=== PATIENT | male | born 1985 | race Caucasian/White ===

== ENCOUNTER 2020-06-09 08:57 | Emergency (ER) | payer MEDICAID ==
[~2020-06-09] VITALS: Ht 182.9 cm; Wt 70.5 kg
[~2020-06-09 08:57] MED LIST: NO HOME MEDS
[2020-06-09 09:18] VITALS: BP 125/84
[2020-06-09] MEDS ORDERED: proparacaine 0.5% ophthalmic drops 15ml EACHEYE ONE (09:25)
[2020-06-09] MEDS ORDERED: ibuprofen tablet 400 MG TABLET PO ONE (09:30)
[2020-06-09] MEDS ORDERED: acetaminophen 325mg tablet PO ONE (09:30)
[2020-06-09] MEDS ORDERED: ERYT1OIN6 LEFTEYE (10:15)
[2020-06-09] MEDS ORDERED: erythromycin ophthalmic ointment 1gm tube LEFTEYE ONE (10:15)
== END 2020-06-09 10:36 | disposition home or self-care (01) ==
LOC: ER 08:58
DX: T15.92XA Foreign body on external eye, part unspecified, left eye, initial encounter (principal); J45.909 Unspecified asthma, uncomplicated; Z79.2 Long term (current) use of antibiotics; X58.XXXA Exposure to other specified factors, initial encounter; Y93.89 Activity, other specified; Y92.89 Other specified places as the place of occurrence of the external cause; Y99.8 Other external cause status
CPT/HCPCS: 65222; 99283; 99284

== ENCOUNTER 2022-05-23 01:41 | Emergency (ER) | payer MEDICAID ==
[~2022-05-23] VITALS: Ht 182.9 cm; Wt 70.5 kg
[2022-05-23 01:46] VITALS: BP 133/92
[2022-05-23] MEDS ORDERED: proparacaine 0.5% ophthalmic drops 15ml LEFTEYE ONE (02:20)
[2022-05-23] MEDS ORDERED: tropicamide 0.5% ophth drops 15ml bottle LEFTEYE ONE (03:35)
[2022-05-23] MEDS ORDERED: ofloxacin 0.33% 5ml ophthalmic drops LEFTEYE SCH (05:15)
[2022-05-23] MEDS ORDERED: OFLO5DRO LEFTEYE (05:19)
--- NOTE | 2022-05-23 05:57 | NUR ---
unable to measure visual acuity r/t eye pain and photosensitivity.
== END 2022-05-23 06:31 | disposition home or self-care (01) ==
LOC: ER 01:42
DX: S05.02XA Injury of conjunctiva and corneal abrasion without foreign body, left eye, initial encounter (principal); J45.909 Unspecified asthma, uncomplicated; X58.XXXA Exposure to other specified factors, initial encounter; Y93.89 Activity, other specified; Y92.89 Other specified places as the place of occurrence of the external cause; Y99.8 Other external cause status
CPT/HCPCS: 99283

== ENCOUNTER 2022-07-07 12:25 | Emergency (ER) | payer MEDICAID ==
[~2022-07-07] VITALS: Ht 185.4 cm; Wt 68.2 kg
[2022-07-07 12:43] VITALS: BP 123/89
[2022-07-07] MEDS ORDERED: bacitracin 15gm ointment TP ONE (14:35)
== END 2022-07-07 14:45 | disposition home or self-care (01) ==
LOC: ER 12:26
DX: S60.459A Superficial foreign body of unspecified finger, initial encounter (principal); J45.909 Unspecified asthma, uncomplicated; W45.8XXA Other foreign body or object entering through skin, initial encounter; Y93.89 Activity, other specified; Y92.89 Other specified places as the place of occurrence of the external cause; Y99.8 Other external cause status
CPT/HCPCS: 99282

== ENCOUNTER 2022-08-15 07:26 | Emergency (ER) | payer MEDICAID ==
[~2022-08-15] VITALS: Ht 182.9 cm; Wt 68.0 kg
[2022-08-15 07:29] VITALS: BP 137/91
[2022-08-15] MEDS ORDERED: SULF1TAB49 PO (08:32)
== END 2022-08-15 09:09 | disposition home or self-care (01) ==
LOC: ER 07:26
DX: B99.8 Other infectious disease (principal); J45.909 Unspecified asthma, uncomplicated; Z79.899 Other long term (current) drug therapy
CPT/HCPCS: 99283

== ENCOUNTER 2023-02-26 08:42 | Emergency (ER) | payer MEDICAID ==
[~2023-02-26] VITALS: Ht 185.4 cm; Wt 80.0 kg
[~2023-02-26 08:42] MED LIST changes: +DOCU-149 PO
[2023-02-26 08:44] VITALS: BP 119/92
[2023-02-26 09:30] LABS: BASOPHILS % (AUTO) 0.2 % (0-1); EOSINOPHILS # (AUTO) 0.1 X10'3 (0-0.9); EOSINOPHILS % (AUTO) 1.5 % (0-6); HEMOGLOBIN 15.4 g/dl (14.0-17.9); LYMPHOCYTES # (AUTO) 1.4 X10'3 (1.1-4.8); LYMPHOCYTES % (AUTO) 20.4 % (21-51); MEAN CORPUSCULAR HEMOGLOBIN 29.7 PG (27.0-31.0); MEAN CORPUSCULAR HGB CONC 33.4 g/dL (33.0-36.5); MEAN CORPUSCULAR VOLUME 88.7 FL (78-98); MEAN PLATELET VOLUME 7.3 FL (7.4-10.4); MONOCYTES # (AUTO) 0.6 X10'3 (0-0.9); MONOCYTES % (AUTO) 8.4 % (2-12); NEUTROPHILS # (AUTO) 4.7 X10'3 (1.8-7.7); NEUTROPHILS % (AUTO) 69.5 % (42-75); PLATELET COUNT 253 X10'3 (140-440); RED BLOOD COUNT 5.19 X10'6 (4.70-6.10); RED CELL DISTRIBUTION WIDTH 13.7 % (11.5-14.5); WHITE BLOOD COUNT 6.7 X10'3 (4.5-11.0)
[2023-02-26] MEDS ORDERED: normal saline 1000ML IV soln IVB ONE (09:45)
[2023-02-26 09:46] LABS: ALANINE AMINOTRANSFERASE 20 U/L (12-78); ALBUMIN 3.7 G/DL (3.4-5.0); ALKALINE PHOSPHATASE 78 IU/L (46-116); ANION GAP 11 (8-16); ASPARTATE AMINO TRANSFERASE 16 U/L (10-37); BILIRUBIN,TOTAL 0.1 MG/DL (0.1-1.0); BLOOD UREA NITROGEN 13 MG/DL (7-18); BUN/CREATININE RATIO 15.5 (10.0-20.0); CALCIUM 8.8 MG/DL (8.5-10.1); CHLORIDE 107 MMOL/L (99-107); CREATININE 0.84 MG/DL (0.60-1.10); GLUCOSE 109 MG/DL (70-104); LIPASE 84 U/L (73-393); POTASSIUM 3.8 MMOL/L (3.5-5.1); SODIUM 140 MMOL/L (135-145); TOTAL CARBON DIOXIDE 21.8 MMOL/L (24-32); TOTAL PROTEIN 7.3 G/DL (6.4-8.2); eGFR > 90 ML/MIN
[2023-02-26 10:11] LABS: CLARITY,URINE CLEAR (Clear); COLOR,URINE YELLOW (Yellow); GLUCOSE, URINE NEGATIVE (Neg); KETONES,URINE TRACE mg/dl (Neg); LEUKOCYTE ESTERASE ,URINE NEGATIVE (Neg); NITRITES, URINE NEGATIVE (Neg); OCCULT BLOOD,URINE TRACE-INTACT (Neg); PH,URINE 5.5 (4.8-8.0); PROTEIN,URINE NEGATIVE (Neg); UROBILINOGEN,URINE 0.2 E.U/dL (0.2-1.0)
[2023-02-26 10:12] LABS: UA COLLECTION TYPE CLN CATCH MIDSTREAM
[2023-02-26 10:17] LABS: BACTERIA,URINE FEW /HPF (Neg); CAL OXALATE CRYSTALS 2+ /HPF (NEGATIVE); MUCUS STRANDS MANY /LPF (Neg); RBC,URINE 0-2 /HPF (0-2); SQUAMOUS EPITHELIAL CELL,UR FEW /LPF (FEW); WBC,URINE 0-4 /HPF (0-4)
[2023-02-26 10:44] LABS: C DIFF SPECIMEN=DIARRHEA? ACCEPTABLE; C DIFFICILE TOXINS A&B NEGATIVE (Neg)
[2023-02-26] MEDS ORDERED: METR-159 PO (11:07)
== END 2023-02-26 11:17 | disposition home or self-care (01) ==
LOC: ER 08:43
DX: R19.7 Diarrhea, unspecified (principal); R10.9 Unspecified abdominal pain; J45.909 Unspecified asthma, uncomplicated; Z79.899 Other long term (current) drug therapy
CPT/HCPCS: 36415; 80053; 81001; 83690; 85025; 87324; 87449; 89055; 99283; J7030

== ENCOUNTER 2023-08-07 19:44 | Emergency (ER) | payer MEDICAID ==
[~2023-08-07] VITALS: Ht 182.9 cm; Wt 70.0 kg
[2023-08-07 19:50] VITALS: BP 128/90; PULSE 110; TEMP 98; O2SAT 99
[2023-08-07] MEDS ORDERED: ketorolac trometh inj. 60 MG/2 ML VIAL IM ONE (21:05)
[2023-08-07] MEDS ORDERED: CYCL-1 PO (21:18)
[2023-08-07] MEDS ORDERED: PRED20TA PO (21:18)
[2023-08-07 21:23] VITALS: RESP 16
== END 2023-08-07 21:31 | disposition home or self-care (01) ==
LOC: ER 19:44
DX: S56.911A Strain of unspecified muscles, fascia and tendons at forearm level, right arm, initial encounter (principal); M77.8 Other enthesopathies, not elsewhere classified; J45.909 Unspecified asthma, uncomplicated; Z79.899 Other long term (current) drug therapy; X50.9XXA Other and unspecified overexertion or strenuous movements or postures, initial encounter; Y93.89 Activity, other specified; Y92.89 Other specified places as the place of occurrence of the external cause; Y99.8 Other external cause status
CPT/HCPCS: 96372; 99283; J1885

== ENCOUNTER 2024-10-26 17:38 | Emergency (ER) | payer MEDICAID ==
[~2024-10-26] VITALS: Ht 182.9 cm; Wt 71.9 kg
[~2024-10-26 17:38] MED LIST changes: +CYCL-1 PO
[2024-10-26 17:42] VITALS: BP 151/91; PULSE 113; RESP 16; O2SAT 98
[2024-10-26 18:58] VITALS: TEMP 98.6
[2024-10-26] MEDS: TETanus/Pertussis (Acell)/Diphther VAC/PF (Tdap-Adult) 0.5ml syringe IMVAC ONE (19:05)
== END 2024-10-26 19:08 | disposition home or self-care (01) ==
LOC: ER 17:39
DX: S81.842A Puncture wound with foreign body, left lower leg, initial encounter (principal); J45.909 Unspecified asthma, uncomplicated; Z79.899 Other long term (current) drug therapy; W34.010A Accidental discharge of airgun, initial encounter; Y93.89 Activity, other specified; Y92.89 Other specified places as the place of occurrence of the external cause; Y99.8 Other external cause status
CPT/HCPCS: 73590; 90471; 90715; 99283

== ENCOUNTER 2025-04-16 03:46 | Emergency (ER) | payer MEDICAID ==
[~2025-04-16] VITALS: Ht 182.9 cm; Wt 69.8 kg
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
[2025-04-16 04:17] VITALS: TEMP 98.2
[2025-04-16] MEDS: glycopyrrolate 0.2mg/ml inj IV ONE (05:39)
[2025-04-16] MEDS: normal saline 1000ML IV soln IVB ONE ×2 (05:39→06:03)
[2025-04-16 05:57] LABS: MEAN PLATELET VOLUME 7.0 FL (7.4-10.4); RED CELL DISTRIBUTION WIDTH 14.3 % (11.5-14.5)
[2025-04-16] MEDS: loperamide 2mg capsule PO ONE (06:03)
[2025-04-16 06:06] LABS: CREATININE 0.94 MG/DL (0.60-1.10); TOTAL CARBON DIOXIDE 29.5 MMOL/L (24-32); eCRCL 102 ML/MIN; eGFR 88 ML/MIN
[2025-04-16] MEDS: HYDROcodone/acetaminophen 10/325mg tab PO ONE (07:46)
[2025-04-16 07:49] VITALS: BP 118/80; PULSE 84; RESP 18; O2SAT 100
== END 2025-04-16 07:51 | disposition home or self-care (01) ==
LOC: ER 03:48
DX: S02.2XXA Fracture of nasal bones, initial encounter for closed fracture (principal); R19.7 Diarrhea, unspecified; J45.909 Unspecified asthma, uncomplicated; Z79.899 Other long term (current) drug therapy; W22.8XXA Striking against or struck by other objects, initial encounter; Y93.89 Activity, other specified; Y92.89 Other specified places as the place of occurrence of the external cause; Y99.8 Other external cause status
CPT/HCPCS: 36415; 80053; 85025; 96361; 96374; 99285; J3490; J7030

== ENCOUNTER 2025-05-02 07:59 | Inpatient (IN) | payer MEDICAID ==
[~2025-05-02] VITALS: Ht 182.9 cm; Wt 80.8 kg
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
--- NOTE | 2025-05-02 09:29 | RADIOLOGY REPORT ---
EXAM: DI HAND, COMPLETE (3VW MIN) CLINICAL INDICATION: HAND PAIN,left TECHNIQUE: DI HAND, COMPLETE (3VW MIN) Comparison: None FINDINGS/IMPRESSION: There is no evidence of acute fracture or dislocation. The visualized joint space is well maintained. The alignment is anatomical. There is no radiopaque foreign body.
[2025-05-02 10:10] LABS: MEAN PLATELET VOLUME 6.9 FL (7.4-10.4); RED CELL DISTRIBUTION WIDTH 14.1 % (11.5-14.5)
[2025-05-02 10:16] LABS: CREATININE 0.86 MG/DL (0.60-1.10); TOTAL CARBON DIOXIDE 27.0 MMOL/L (24-32); eCRCL 124 ML/MIN; eGFR > 90 ML/MIN
[2025-05-02 12:14] LABS: LEUKOCYTE ESTERASE ,URINE NEGATIVE (Neg); NITRITES, URINE NEGATIVE (Neg); OCCULT BLOOD,URINE NEGATIVE (Neg)
[2025-05-02 12:20] LABS: UA COLLECTION TYPE NON-SPECIFIED
[2025-05-02] MEDS: normal saline 1000ML IV soln IVB ONE (14:17)
[2025-05-02] MEDS: vancomycin/NS 1 GM ADD-VANTAGE 250 ML X 1 DOSE IV ONE (14:18)
[2025-05-02] MEDS ORDERED: HYDROcodone/acetaminophen 10/325mg tab PO PRN (15:10)
[2025-05-02] MEDS ORDERED: magnesium sulf-water 2g/50mL 50 ML IV PRN (15:10)
[2025-05-02] MEDS ORDERED: potassium Cl 20 mEq SR tablet PO PRN ×2 (15:10)
[2025-05-02] MEDS ORDERED: magnesium Cl slow-release 64mg tablet PO PRN (15:10)
[2025-05-02] MEDS ORDERED: potassium Cl 40MEQ/1/2NS 520ml 520 ML IV PRN (15:10)
[2025-05-02] MEDS ORDERED: magnesium sulf-water 4G/100mL 100 ML IV PRN (15:10)
[2025-05-02] MEDS ORDERED: ondansetron/PF 4mg/2ml inj IV PRN (15:10)
[2025-05-02] MEDS ORDERED: magnesium hydroxide 30ml (MOM) UD suspension PO PRN (15:10)
[2025-05-02] MEDS ORDERED: mag hydrox/Alum hydrox/simeth 30ml oral suspension PO PRN (15:10)
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
[2025-05-02 16:35] LABS: ETHANOL < 10 MG/DL (<10)
[2025-05-02] MEDS: piperacillin/tazo 3.375gm/50ml 50 ML IV SCH (16:56)
[2025-05-02 17:30] VITALS: BP 128/70; PULSE 83; RESP 17; TEMP 98.3; O2SAT 100
[2025-05-02 20:00] VITALS: RESP 17; O2SAT 100
[2025-05-02] MEDS: K and/or MAG REPLACEMENT MC SCH (20:00)
[2025-05-02] MEDS: docusate sod 100mg capsule PO SCH (20:42)
[2025-05-02 22:00] VITALS: BP 120/73; PULSE 70; RESP 16; TEMP 98; O2SAT 98
[2025-05-03] VITALS (7 sets, daily range): BP systolic 108–123; BP diastolic 66–75; PULSE 62–78; RESP 14–16; TEMP 97.6–98.7; O2SAT 96–99
[2025-05-03] MEDS: ringers solution, lacted 1,000 ML IV SCH (00:20)
[2025-05-03 04:52] LABS: CREATININE 0.71 MG/DL (0.60-1.10); TOTAL CARBON DIOXIDE 25.0 MMOL/L (24-32); eCRCL 150 ML/MIN; eGFR > 90 ML/MIN
[2025-05-03 08:01] LABS: MEAN PLATELET VOLUME 7.2 FL (7.4-10.4); RED CELL DISTRIBUTION WIDTH 14.2 % (11.5-14.5)
[2025-05-03] MEDS: vancomycin/NS 1 GM ADD-VANTAGE 250 ML IV SCH (09:00)
[2025-05-03] MEDS: CefTRIAXone 2gm/D5W 50ml BAG 50 ML IV SCH (09:26)
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
--- NOTE | 2025-05-03 15:11 | PROGRESS NOTE ---
Progress Note Ortho Follow Up Progress Note Finger looks worse today with more pain and swelling extending into the palm. ROS ROS No new complaints Exam Exam: Alert and Oreinted x4 Exam Comments Swelling has increased and there appears to be an abscess area of the mid radial aspect of the digit. There is some tenderness in the palm as well though no clear [place] signs Problem/Assessment/Plan Problems/Diagnosis: (1) Cellulitis Additional Plan He is not improving with IV antibiotics and appears to have developed an abscess in that area so surgical debridement is indicated. I discussed this with the patient as well as the risks and benefits and he agreed to proceed. We will perform the surgery tomorrow. Results/Orders Result Diagram: 05/03/25 0711 05/03/25 0416 Problem Qualifiers (1) Cellulitis: LUCY CLOUD Jr., MD May 03, 2025 15:11
[2025-05-03] MEDS: HYDROcodone/acetaminophen 5mg/325mg tablet PO PRN (16:23)
[2025-05-04] VITALS (21 sets, daily range): BP systolic 109–128; BP diastolic 54–82; PULSE 59–100; RESP 12–18; TEMP 97.2–98.5; O2SAT 94–99
[2025-05-04 05:53] LABS: MEAN PLATELET VOLUME 7.4 FL (7.4-10.4); RED CELL DISTRIBUTION WIDTH 14.5 % (11.5-14.5)
[2025-05-04 06:09] LABS: CREATININE 0.88 MG/DL (0.60-1.10); TOTAL CARBON DIOXIDE 26.6 MMOL/L (24-32); eCRCL 121 ML/MIN; eGFR > 90 ML/MIN
[2025-05-04] MEDS ORDERED: VANCOMYCIN LEVEL IV ONE (08:30)
[2025-05-04] MEDS: CefTRIAXone 2gm/D5W 50ml BAG 50 ML IV SCH (11:40)
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
[2025-05-04] MEDS ORDERED: vancomycin/NS 1 GM ADD-VANTAGE 250 ML X 1 DOSE IV SCH (12:00)
[2025-05-04] MEDS ORDERED: BUPIVAcaine/PF 2.5mg/ml (0.25%) 10ml vial ONE (12:26)
[2025-05-04] MEDS ORDERED: midazolam 1 mg/ML 2ml injection ONE (12:43)
[2025-05-04] MEDS ORDERED: fentaNYL/PF 50MCG/1 ML 2ML syringe ONE (12:43)
[2025-05-04] MEDS ORDERED: ondansetron/PF 4mg/2ml inj IV PRN (12:50)
[2025-05-04] MEDS ORDERED: HYDROmorphone/PF 0.2 MG/ML SYRINGE IV PRN ×2 (12:50)
[2025-05-04] MEDS ORDERED: ringers solution, lacted 1,000 ML IV SCH (12:50)
[2025-05-04] MEDS ORDERED: morphine 4 MG/ML inj SYRINge IV PRN (12:50)
[2025-05-04] MEDS ORDERED: propofol inj 20 ML IV ONE (12:50)
[2025-05-04] MEDS ORDERED: labetalol 20mg/4ml (5mg/ml) syringe IV PRN (12:50)
[2025-05-04] MEDS ORDERED: LIDOcaine 2% (20mg/ml) 5ml vial ONE (12:50)
[2025-05-04] MEDS ORDERED: fentaNYL/PF 50MCG/1 ML 2ML syringe IV PRN ×2 (12:50)
[2025-05-04] MEDS ORDERED: enalaprilat 1.25mg/ml 2ml vial IV PRN (12:50)
[2025-05-04] MEDS ORDERED: dexamethasone sod phosphate 4mg/ml inj. ONE (13:13)
--- NOTE | 2025-05-04 13:17 | OPERATIVE REPORT ---
Operative Report Providers to ~ Date of Procedure: May 04, 2025 Pre-Operative Diagnosis: Left index finger infection Post-Operative Diagnosis SAME as PRE-Op Procedure Performed Incision and drainage left index finger Surgeon: Cm Alvarez MD Tonnage Compilation Clerk None Anesthesiologist: Carlos Sutton Type of Anesthesia: General Findings: Abscess in the lateral aspect of the finger not involving the tendon sheath Complications None Prosthetics\Implants used: None Estimated Blood Loss: None Specimen Removed: Deep wound culture Description of Procedure: The patient is a 39-year-old man who presented with a an index finger infection which did not respond to several days of antibiotics. He had increasing pain and swelling extending into the finger. Surgery is indicated to eradicate infection. Risks and benefits were discussed with the patient he agreed to proceed. He was brought to the operating room where the anesthetic was given. The arm was prepped and draped in usual manner with a tourniquet high in the arm. Incision was made over the fluctuant area which was in the mid aspect radial side of the index finger. There was immediate extravasation of the purulent material which was cultured. The wound was opened and spread and the curette and rongeur were used to debride nonviable tissue followed by copious irrigation with both plain saline and antibiotic solution. I did not extend to the extensor or flexor sheath. Once single suture was done for loose closure to cover the tendons. Dressing was then applied after Marcaine was injected to the base of the digit. The tourniquet was released the hand perfused well and he was taken to the recovery room in stable condition. The patient tolerated the procedure well CM ALVAREZ Jr., MD May 04, 2025 13:17
[2025-05-04] MEDS: BUPIVAcaine/PF 2.5mg/ml (0.25%) 10ml vial IJ ONE (13:25)
[2025-05-04] MEDS: vancomycin/NS 1 GM ADD-VANTAGE 250 ML X 1 DOSE IV SCH (14:33)
[2025-05-05 06:34] LABS: MEAN PLATELET VOLUME 7.2 FL (7.4-10.4); RED CELL DISTRIBUTION WIDTH 13.6 % (11.5-14.5)
[2025-05-05 06:51] LABS: CREATININE 0.81 MG/DL (0.60-1.10); TOTAL CARBON DIOXIDE 25.2 MMOL/L (24-32); eCRCL 132 ML/MIN; eGFR > 90 ML/MIN
[2025-05-05 07:14] VITALS: BP 136/80; PULSE 66; RESP 16; TEMP 97; O2SAT 97
[2025-05-05 08:00] VITALS: RESP 16
[2025-05-05 08:20] VITALS: RESP 18; O2SAT 97
[2025-05-05 10:41] VITALS: BP 115/70; PULSE 80; RESP 14; TEMP 98.4; O2SAT 98
[2025-05-05] MEDS: VANCOMYCIN LEVEL IV ONE (11:09)
[2025-05-05] MEDS: VANCOmycin 1250MG/NS 250ml Bag 250 ML IV SCH (16:20)
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
[2025-05-06] MEDS ORDERED: VANCOMYCIN LEVEL IV ONE (15:30)
--- NOTE | 2025-05-06 20:46 | DISCHARGE SUMMARY-Residence ---
Discharge Summary Providers to CC Resident Creating Document: JESSE BRIGHT RES ~ Discharge Summary Admission Diagnosis: Flexor tenosynovitis Hospital Course DATE OF ADMISSION: 05/02/25 DATE OF DISCHARGE: 05/06/25 Patient left against medical advice Discharge Diagnosis\Comment: Left index finger infection Intermittent asthma Methamphetamine use disorder Operations\Procedures: Incision and drainage left index finger by Dr. Alvarez Consultants: Dr. Cm Alvarez Complications: Left AMA Condition on DC: Unstable Discharge Summary: Risks and complications were explained to the patient. Patient left against medical advice. *Problems/Diagnosis: (1) Cellulitis Total Time Spent on D/C: > 30 Minutes Date of Service: May 06, 2025 Billing Provider: ERIKA BARONE MD Common Visit Codes: 10542-TKC/OBS DISCH DAY >30min Problem Qualifiers (1) Cellulitis: Site of cellulitis of extremity: finger Laterality: left JESSE BRIGHT RES May 06, 2025 20:46 ERIKA BARONE MD May 07, 2025 14:28
== END 2025-05-05 18:41 | disposition left against medical advice (07) | DRG 364 ==
LOC: ER 08:00 → ED HOLD 12:23 → SUR 3N 16:55
PROVIDERS: ADMIT Internal Medicine; ATTEND Internal Medicine
PROC: 0JBJ0ZZ Excision of Right Hand Subcutaneous Tissue and Fascia, Open Approach (ICD-10-PCS; principal; 2025-05-04 12:37)
DX: L03.012 Cellulitis of left finger (principal); F15.90 Other stimulant use, unspecified, uncomplicated; J45.909 Unspecified asthma, uncomplicated; M65.942 Unspecified synovitis and tenosynovitis, left hand; S69.82XA Other specified injuries of left wrist, hand and finger(s), initial encounter; X58.XXXA Exposure to other specified factors, initial encounter; Z53.21 Procedure and treatment not carried out due to patient leaving prior to being seen by health care provider; Y93.89 Activity, other specified; Y92.89 Other specified places as the place of occurrence of the external cause; Y99.8 Other external cause status; Z79.899 Other long term (current) drug therapy
CPT/HCPCS: 36415; 73130; 80048; 80202; 80320; 81003; 82550; 82948; 83605; 83735; 84145; 85025; 85027; 87040; 87070; 87075; 87077; 87081; 87186; 96365; 99285; A4618; A6222; A6446; A6449; A7000; G0378; J0696; J1100; J2003; J2250; J2543; J2704; J3010; J3373; J3374; J3490; J7030; J7120